=== PATIENT | male | born 1995 | race Caucasian/White ===

== ENCOUNTER 2020-08-08 11:58 | Emergency (ER) | payer BC, SELFPAY ==
[2020-08-08 12:00] VITALS: BP 135/77; PULSE 108; RESP 16; TEMP 35.3; O2SAT 97; BMI 16.6
--- NOTE | 2020-08-08 12:25 | EKG12_ITS ---
Test Reason : SYNCOPE Blood Pressure : / mmHG Vent. Rate : 091 BPM Atrial Rate : 091 BPM P-R Int : 116 ms QRS Dur : 094 ms QT Int : 336 ms P-R-T Axes : 088 097 027 degrees QTc Int : 413 ms Normal sinus rhythm Rightward axis Borderline ECG Confirmed by EUFEMIA ANNE, SOHAIL ([id number]), film or videotape editor ALCIDES POLO ([id number]) on 08/09/2020 12:49:48 PM Referred By: CODI Confirmed By:SOHAIL FALL MD
--- NOTE | 2020-08-08 12:26 | ED.DCSUM_ITS ---
History of Present Illness Chief Complaint: Syncope Informant: Patient Narrative: 25-year-old male presenting with 2 episodes of syncope which occurred today. He states that the first episode happened when he got up off the couch to make a baby's bottle. He states that his stomach started to burn and he he just fainted. He denies headache or dizziness. He denies chest pain or shortness of breath. Patient states he had episode of syncope about a month ago. He was not evaluated at this time. Patient does state that he has a strong family history of hypothyroidism. He has not specifically been diagnosed with this problem. He does state that he does feel fatigued today. Past Medical History - Allergies and Home Meds Allergies/Adverse Reactions: Allergies No Known Allergies Allergy (Verified 08/08/20 12:00) Primary Care Physician: Care Physician,No Primary [Primary Care Provider] - Prior records reviewed: Yes Past Medical History: None Surgical History: noncontributory Lives: Spouse/ Significant Other Smoking Status: Unknown if ever smoked Alcohol: None Drugs: None Review of Systems General: Reports: - - Slight fatigue. Denies: Chills, Fever, Sweats Eyes: Denies: Visual changes - bilaterally, Diplopia ENT: Denies: Rhinorrhea, Sore throat Cardiovascular: Reports: - - Syncope. Denies: Chest pain, Palpitations Respiratory: Denies: Dyspnea, Cough, Dyspnea on exertion Gastrointestinal: Denies: Abdominal pain, Nausea, Vomiting, Diarrhea, Melena, Hematochezia Genitourinary: Denies: Dysuria, Hematuria, Frequency Musculoskeletal: Denies: Back pain, Extremity Pain Skin: Denies: Rash, Wounds Neurological: Denies: Headache, Weakness, Parasthesia, Numbness Physical Exam Vital Signs/Narrative: Vital Signs Temp Pulse Resp BP Pulse Ox 08/08/20 12:00 95.6 F L 108 H 16 135/77 H 97 Inital Vital Signs reviewed: Yes General: Well nourished, Well developed, No Acute Distress Head: Normocephalic, Atraumatic Eyes: Perrl, EOMI ENT: Moist mucous membranes, No rhinorrhea Cardiovascular: Regular rhythm, Tachycardia Respiratory: No distress, CTA bilaterally, Chest nontender Back: Nontender, Normal Inspection Extremities: Nontender, No edema Skin: Normal color, No rash Neurological: Alert, Oriented x3, Cranial nerves II-XII grossly intact, Normal Strength, Normal Sensation Psychological: Normal affect, Normal Mood Diagnostic/Tx/Re-eval Clinical Impression(s) from Imaging Studies Chest X-Ray 08/08/20 13:00 IMPRESSION: Hyperinflation. The lungs are clear. Electronically Signed: Benny Osborne MD at 13:19 EST , Service support , Laboratory Data 08/08/20 08/08/20 08/08/20 12:35 12:35 12:35 WBC 3.4 L RBC 4.96 Hgb 14.6 Hct 41.8 MCV 84.3 MCH 29.4 MCHC 34.9 RDW Std Deviation 35.7 RDW Coeff of Awilda 11.9 Plt Count 221 MPV 9.9 Immature Gran % (Auto) 0.300 Neut % (Auto) 58.2 Lymph % (Auto) 26.3 Dickinson % (Auto) 12.0 H Eos % (Auto) 2.3 Baso % (Auto) 0.9 Absolute Neuts (auto) 2.0 Absolute Lymphs (auto) 0.90 Nucleated RBC % 0 D-Dimer Quant (PE/DVT) <= 0.27 Sodium 140 Potassium 3.7 Chloride 106 Carbon Dioxide 28.0 Anion Gap 6 BUN 17 Creatinine 1.16 Estim Creat Clear Calc 77.89 Est GFR (MDRD) Af Amer 100 Est GFR (MDRD) Non-Af 83 BUN/Creatinine Ratio 14.7 Glucose 80 Calcium 9.1 Magnesium 2.3 Troponin I < 0.015 TSH 1.27 - EKG Initial EKG Interpretation: Sinus Rhythm, No Acute Injury Pattern - Medical Decision Making 25-year-old male presenting with 2 episodes of syncope which occurred today. He states he has had this in the past. Patient states he feels well currently. He does not have any dizziness, lightheadedness, chest pain, palpitations, shortness of breath. EKG performed on arrival and interpreted by myself shows a sinus rhythm at 91 bpm. Chest x-ray is interpreted by myself shows no acute cardiopulmonary process. Radiology does agree. Orthostatic vital signs are normal. CBC shows a white blood cell count of 3.4 hemoglobin 14.6. Renal function is normal. Electrolytes are normal. TSH was also normal. I found no reason via testing to have the patient be admitted to the hospital. He was given return precautions. Patient is currently establishing with a primary care physician via telehealth visit in the near future. Impression: 1. Syncope ED Disposition - Plan for ED Patient: Disposition: Home or Assisted Living Instructions: ED Fainting, Uncertain Cause Referrals: Care Physician,No Primary [Primary Care Provider] -
[2020-08-08 12:29] VITALS: O2SAT 98
[2020-08-08 12:36] VITALS: BP 107/71; BP 116/75; BP 117/77; PULSE 91; PULSE 97; PULSE 99
[2020-08-08 12:56] LABS: Basophil# 0.03 X10^3/uL; Basophil% 0.9 % (0-1); Eosinophil# 0.08 X10^3/uL; Eosinophils% 2.3 % (0-5); Hematocrit 41.8 % (40-54); Hemoglobin 14.6 g/dL (13.0-16.5); Lymphocyte % 26.3 % (19-41); Mean Corp Hgb Conc 34.9 g/dL (32-36); Mean Corpuscular Hgb 29.4 pg (27.0-32.0); Mean Corpuscular Volume 84.3 fL (80-94); Mean Platelet Vol. 9.9 fl (6.2-12.0); Monocyte# 0.41 X10^3/uL; NRBC Flagged by Analyzer 0 % (0-5); Neutrophil # 1.99 X10^3/uL (2.7-7.7); Neutrophil % 58.2 % (47-70); Platelet Count 221 K/mm3 (150-450); RBC Distribution Width CV 11.9 % (11.6-14.6); RBC Distribution Width SD 35.7 fl (35.1-43.9); Red Blood Count 4.96 M/mm3 (4.6-6.2); White Blood Count 3.4 K/mm3 (4.4-11.0)
--- NOTE | 2020-08-08 13:00 | RAD_ITS ---
STUDY: X-RAY CHEST REASON FOR EXAM: Male, 25 years old. Chest pain TECHNIQUE: Single AP portable view of the chest. COMPARISON: None. FINDINGS: EKG electrodes are seen. Hyperinflation. The lungs are clear. There is no demonstrated pleural abnormality. Normal size heart. Normal mediastinum and aj. Normal visualized pulmonary arteries. Normal visualized aortic arch and descending thoracic aorta. Normal visualized thoracic spine. Normal visualized ribs, clavicles, and shoulders. There is no demonstrated abnormality of the visualized soft tissue structures of the upper abdomen. RAD/Chest 1 View (Portable) IMPRESSION: Hyperinflation. The lungs are clear. Electronically Signed: Benny Osborne MD at 13:19 EST , Service support ,
[2020-08-08 13:12] LABS: D-Dimer Quantitative (DVT/PE) <= 0.27 FEU/ug/m (0.27-0.49)
[2020-08-08 13:13] LABS: Anion Gap 6 (5-15); BUN 17 mg/dL (7-18); BUN/Creat Ratio 14.7 RATIO (10-20); Calcium,Total 9.1 mg/dL (8.5-10.1); Chloride 106 mmol/L (98-107); Creatinine, Serum 1.16 mg/dL (0.70-1.30); EST Glomerular Filtration Rate 83 mL/min (>60); Est Glom Filt Rate - Afr Amer 100 mL/min (>60); Estimated Creatinine Clearance 77.89 ml/min; Glucose 80 mg/dL (74-106); Magnesium 2.3 mg/dL (1.6-2.6); Potassium 3.7 mmol/L (3.5-5.1); Sodium Level 140 mmol/L (136-145); Thyroid Stim Hormone (TSH) 1.27 uIU/mL (0.358-3.74)
[2020-08-08 13:59] VITALS: BP 108/57; PULSE 86; RESP 19; O2SAT 99
[2020-08-08 14:57] VITALS: BP 107/64; PULSE 78; RESP 16; O2SAT 98
== END 2020-08-08 14:58 | disposition home or self-care (01) ==
PROVIDERS: Emergency Provider Student in an Organized Health Care Education/Training Program
DX: R55 Syncope and collapse (principal)
CPT/HCPCS: 71045; 80048; 83735; 84443; 84484; 85025; 85379; 93005; 99284; A4216

== ENCOUNTER 2020-08-08 16:58 | Emergency (ER) | payer BC, SELFPAY ==
[2020-08-08 16:59] VITALS: BP 124/75; PULSE 105; PULSE 97; RESP 16; TEMP 36.1; O2SAT 100; O2SAT 99; BMI 16.6
--- NOTE | 2020-08-08 17:11 | CT_ITS ---
STUDY: CT BRAIN WITH AND WITHOUT CONTRAST REASON FOR EXAM: Male, 25 years old. Migraine headache, nausea, photophobia RADIATION DOSAGE (If Supplied By Facility): CTDIvol = ( 24.11 ) mGy, DLP = ( 961.97 ) mGycm TECHNIQUE: Transaxial CT imaging of the brain was performed pre and post contrast administration. The examination was performed with intravenous administration of ml of 100mL Isovue-370 contrast material. Individualized dose optimization techniques were used for this CT. COMPARISON: None. FINDINGS: A large 8.0 x 5.27 cm left temporal and parietal/middle fossa cyst is present with benign features compatible with an arachnoid cyst. No soft tissue components or calcifications are seen and no demonstrated enhancement on the postcontrast portion of the study. The surrounding parenchyma is normal without evidence of vasogenic edema. Mild rightward midline shift is present of 3.5 mm. No demonstrated transtentorial herniation. Normal soft tissue structures. Normal calvarium. Normal size ventricles and extra-axial spaces for the patient''s age. Normal white matter tracts of the cerebral hemispheres. Normal basal ganglia and thalami. Normal brainstem. Normal cerebellum. There is no intracranial hemorrhage. There are no findings of an acute ischemic infarction. Normal visualized paranasal sinuses. CT/CTA Head W/WO Contrast IMPRESSION: 1. A large 8.0 x 5.27 cm left temporal and parietal/middle fossa cyst is present with benign features compatible with an arachnoid cyst. No soft tissue components or calcifications are seen and no demonstrated enhancement on the postcontrast portion of the study. The surrounding parenchyma is normal without evidence of vasogenic edema. 2. Mild rightward midline shift is present of 3.5 mm. No demonstrated transtentorial herniation. Electronically Signed: Yunier Ford MD at 18:17 EST , Service support ,
--- NOTE | 2020-08-08 17:13 | ED.VIS.GEN ---
History of Present Illness Chief Complaint: Headache Informant: Patient Onset: Today Context: Gradual Onset Timing: Waxes and wanes Current Severity: Moderate Maximum Severity: Moderate Narrative: Patient returns to the ED complaining of headache. Patient was seen here earlier today for syncope. He states he got up around 830 this morning and was making his baby a bottle when he became warm and passed out. Evaluation here was unremarkable. Patient states as he was leaving the emergency room he started to develop a headache. He does have a history of migraines did not think much of it but it did get significantly worse and was in a different location than normal. He did take 3 ibuprofen. Pain is currently a 5 out of 10 and has been waxing and waning. He denies vision change or vomiting. He does have some slight photophobia. - Past Medical History (1) Migraines Status: Chronic Past Medical History - Allergies and Home Meds Allergies/Adverse Reactions: Allergies No Known Allergies Allergy (Verified 08/08/20 12:00) Primary Care Physician: Care Physician,No Primary [Primary Care Provider] - Prior records reviewed: Yes Surgical History: noncontributory Lives: With Family Smoking Status: Never smoker Review of Systems General: Denies: Chills, Fever Eyes: Denies: Visual changes - bilaterally ENT: Denies: Bilateral ear pain Cardiovascular: Denies: Chest pain Respiratory: Denies: Dyspnea, Cough Gastrointestinal: Denies: Abdominal pain, Nausea, Vomiting, Diarrhea Genitourinary: Denies: Dysuria Musculoskeletal: Denies: Swelling, Extremity Pain Skin: Denies: Rash Neurological: Reports: Headache. Denies: Weakness, Parasthesia Hematologic: Denies: Easy bruising, Easy bleeding Allergy: Denies: Uticaria Physical Exam Vital Signs/Narrative: Vital Signs Temp Pulse Resp BP Pulse Ox 08/08/20 16:59 96.9 F L 105 H 16 124/75 H 99 Inital Vital Signs reviewed: Yes General: Well nourished, Well developed Head: Normocephalic Eyes: Perrl, EOMI ENT: Moist mucous membranes, No rhinorrhea Neck: Supple, - - No meningismus Cardiovascular: Regular rate, Regular rhythm Respiratory: No distress, CTA bilaterally Abdomen: Soft, Nontender Extremities: Nontender Skin: Normal color, No rash Neurological: Alert, Oriented x3, Normal Strength, Normal Sensation Psychological: Normal affect Diagnostic/Tx/Re-eval Impressions Head CTA 08/08/20 17:11 IMPRESSION: 1. A large 8.0 x 5.27 cm left temporal and parietal/middle fossa cyst is present with benign features compatible with an arachnoid cyst. No soft tissue components or calcifications are seen and no demonstrated enhancement on the postcontrast portion of the study. The surrounding parenchyma is normal without evidence of vasogenic edema. 2. Mild rightward midline shift is present of 3.5 mm. No demonstrated transtentorial herniation. Electronically Signed: Yunier Ford MD at 18:17 EST , Service support , 08/08/20 17:11 CTA Head W/WO Contrast [CT] Stat - Medical Decision Making Patient's work-up from earlier today is reviewed. That is unremarkable. CTA of the head is obtained that reveals a large arachnoid cyst on the left. This appears benign. On repeat evaluation patient is resting comfortably. He continues to have normal neurologic examination. He will be given a dose of Toradol, Reglan, and Benadryl to help with his migraine. Test results are discussed with patient as well as family at bedside. I did advise him that I believe this has been present for quite some time and I am unsure if this is related to his syncopal event. At this time I recommended outpatient follow-up with neurosurgery. They would prefer to see somebody at [facility] and that information to make an appointment has been provided for them. ED Disposition - Plan for ED Patient: Disposition: Home or Assisted Living Diagnosis: Migraine, Arachnoid cyst Instructions: ED, Migraine (Classical) Additional Instructions: Neurosurgery at [facility]: Call [phone] for an appointment. Appointments [facility] offers in-person appointments at more than 40 locations in [facility]; [place], [place] and [place], [place]. We also offer virtual visit appointments, allowing you to meet with a specialist where and when it?s most convenient. In-Person Appointments To make an appointment with a specialist in [facility] [place], please call toll-free 24 hours, 7 days a week at [phone]. ?To schedule directly with a provider at a [facility], please call [phone] or locally at [phone]. ?To schedule directly with a provider at [facility], please call [phone] or locally at [phone]. ?To schedule directly with a provider at [facility], please call [phone] or locally at [phone]. ?To schedule directly with a provider at [facility], please call [phone] or locally at [phone]. Virtual Visits [facility] offers virtual visit appointments, allowing you to meet with a specialist from the comfort of your home, using a mobile device, tablet, computer or web-enabled device. The following visit types are supported by providers in [facility] [place]: ?New or Follow-up Medical or Surgical Appointments: New or existing patients can visit with a [facility] physician, surgeon or advanced practice provider (physician medical assistant secretary, nurse practitioner, etc) to receive an initial consult or follow-up care. ?Multiple Sclerosis Education Visit: Receive educational information from national leaders in the management and care of multiple sclerosis, no physician referral required. Let our specialists answer your most pressing questions, provide personalized education and share insights into how we manage care for individuals with MS. ?Online Headache Education Program: An eight session interactive, online program designed for individuals who are experiencing chronic headaches and looking for additional tools to manage headache triggers and pain. Why go virtual? It's an easy, convenient and secure way to see your provider [id number] without having to leave home. This saves you travel time, parking fees and time spent in the waiting room ? and you can also have a loved one or caregiver join you. If appropriate, you can also get a prescription sent to the pharmacy of your choice. Many insurance companies cover the cost of virtual visits, so check with your insurance company ahead of time. Interested in getting started? Call your provider to find out what virtual visit options are available. ?Learn more about virtual visits for scheduled appointments
[2020-08-08] MEDS: DiphenhydrAMINE 50 MG/ML Syringe 25 MG IV (18:51)
[2020-08-08] MEDS: Metoclopramide 10 MG/2 ML Vial IV (18:51)
[2020-08-08] MEDS: Ketorolac 15 MG/ML Vial IV (18:51)
[2020-08-08] MEDS: 0.9% Normal Saline 1,000 ML 999 ML IV (18:51)
== END 2020-08-08 20:02 | disposition home or self-care (01) ==
PROVIDERS: Emergency Provider Emergency Medicine
DX: G43.909 Migraine, unspecified, not intractable, without status migrainosus (principal); G93.0 Cerebral cysts
CPT/HCPCS: 70496; 96374; 96375; 99283; J7030; Q9967; A4216